=== PATIENT | female | born 1975 | race Caucasian/White ===

== ENCOUNTER 2016-10-26 18:14 | Emergency (ER) | payer OTHER ==
--- NOTE | 2016-10-26 19:27 | ED NURSING NOTES ---
Clinical Report - Nurses [facility] [place] [address] 10/26/2016 18:15 Patient: CT WITT TRIAGE Chief Complaint: SORE THROAT and (pt reports sorethroat that began yesterday,). Alert. No acute distress. SEPSIS SCREEN: Sepsis Screen: negative. Negative (no infection suspected/documented). --18:28 Quan Rodriguez R.N. 18:24 10/26/16. BP: 115/66. HR: 88. RR: 17. O2 saturation: 100%. Temp: 99 F. Pain level now: 12/06. --18:28 Quan Rodriguez R.N. Weight: 77.1 kg stated. Height/Length: 62 inches Per Patient. BMI: 31.1. --18:26 Quan Rodriguez R.N. Medications None. --18:26 Quan Rodriguez R.N. Allergies None. --18:26 Quan Rodriguez R.N. Medication/allergy information source: the patient. --18:28 Quan Rodriguez RLetha History This started yesterday. 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 PAST MEDICAL HX: No history of strep throat. Immunizations: up-to-date. Last normal menstrual period- September 29. SOCIAL HX: Smoker- current status unknown. No alcohol use or drug use. Infectious disease exposure. (daughter also has sore throat). ABUSE ASSESSMENT: No report of abuse. SELF HARM ASSESSMENT: A self harm assessment was performed. The patient answered "no" to the question "Do you have thoughts of harming or killing yourself?". FALL RISK ASSESSMENT: Fall risk assessment completed. No fall risk identified. NUTRITIONAL RISK ASSESSMENT: The nutritional risk assessment revealed no deficiencies. FUNCTIONAL ASSESSMENT: Functional assessment: no impairments noted. LEARNING NEEDS ASSESSMENT: The learning needs assessment revealed no barriers. SKIN INTEGRITY ASSESSMENT: Skin integrity risk assessment completed. No skin integrity risk identified. --18:28 PageDewayneKuchan, Karyol, R.N. PROBLEMS: Myofascial Strain. Irritable Bowel Syndrome. Back Pain. --18:27 Quan Rodriguez R.N. ADDITIONAL SURGERIES: Artery resection of right wrist. Other surgerys pt wont explain. --18:27 Quan Rodriguez R.N. Interventions ID band on patient. --18:28 Quan Rodriguez R.N. PHYSICAL ASSESSMENT Ambulatory to room. Patient gowned. GENERAL / NEURO / PSYCH: Alert. Oriented X 4. Appears in no acute distress. HEENT: Pupils equal, round and reactive to light. Voice within normal limits. Mucous membranes are pink. RESPIRATORY: Respirations not labored. CVS: Capillary refill less than 2 seconds. SKIN: Skin is warm and dry. Normal skin turgor. --18:28 Quan Rodriguez R.N. NURSING PROGRESS NOTES Patient identifiers checked. Call light placed in reach. Side rails up. Bed placed in lowest position. Brakes of bed on. Patient ready for evaluation- chart flagged. Patient waiting for evaluation. --18:29 Quan Rodriguez R.N. 18:49 10/26/16. Checked patient name and birthdate: patient confirmed. Throat swab obtained for rapid strep; labeled in the presence of the patient and sent to lab (collected by ). Reassessment after medication administered. --18:54 Quan Rodriguez R.N. Patient waiting for lab results. ( pt texting on phone, call light in reach, waiting lab results). --19:13 Quan Rodriguez R.N. DISPOSITION / DISCHARGE No learning barriers present. Discharge instructions provided and reviewed with the patient. Reviewed medication(s) side effects and course information. Prescription(s) given to the patient. Patient verbalized understanding. Written instructions provided in Emir[place]. The patient was discharged by the physician. She was discharged home and accompanied by family. She left the Emergency Department ambulatory and via private vehicle. Patient driving. --19:43 Quan Rodriguez R.N. 19:42 10/26/16. BP: 109/64. HR: 78. RR: 17. O2 saturation: 100%. Temp: 99.1 F. Pain level now: 11/06. --19:43 Quan Rodriguez R.N. Locked/Released at 10/26/2016 20:26 by Quan Rodriguez R.N.
--- NOTE | 2016-10-26 19:27 | ED CLINICAL REPORT ---
Clinical Report - Physicians/Mid Levels [facility] [address] [place] [address] 10/26/2016 18:15 Patient: CT WITT Time Seen: 18:20; initial patient contact. Arrived- By private vehicle. Historian- patient. HISTORY OF PRESENT ILLNESS Chief Complaint: SORE THROAT. This started about 1 week ago and is still present. It was gradual in onset. Pain described as mild. The patient has had a sore throat. No nasal discharge or congestion or ear pain. Similar symptoms previously: None. Recent medical care: Not recently seen/assessed. REVIEW OF SYSTEMS No fever, cough, nasal congestion, runny nose or sinus pain. All systems otherwise negative, except as recorded above. PAST HISTORY Myofascial Strain. Irritable Bowel Syndrome. Back Pain. ADDITIONAL SURGERIES: Artery resection of right wrist. Other surgerys pt wont explain. Medications: None. Allergies: None. SOCIAL HISTORY Smoker - current status unknown. No alcohol use or drug use. ADDITIONAL NOTES The nursing notes have been reviewed. PHYSICAL EXAM Vital Signs: 10/26/2016 18:24 BP: 115/66. HR: 88. RR: 17. O2 saturation: 100%. Temp: 99 F. Pain level now: 7/10. Have been reviewed as normal. Appearance: Alert. No acute distress. Head: Normal external inspection. No tenderness to palpation/percussion over the sinuses. ENT: Ears normal. Nose normal. Mild generalized pharyngeal erythema with right tonsillar swelling and exudate and left tonsillar swelling. No left tonsillar exudate. No muffled or hoarse voice. The mucous membranes are not dry. Neck: Trachea midline. No adenopathy. CVS: Normal heart rate and rhythm. Heart sounds normal. Respiratory: No respiratory distress. Chest nontender. Skin: Normal skin color. No rash. Neuro: Oriented X 3. LABS, X-RAYS, AND EKG Laboratory Tests: Culture, Strep Screen: (LOLA: 10/26/2016 18:45) ( MsgRcvd 10/26/2016 19:22) Final results Test Result Flag Units (Reference) RAPID STREP SCREEN - THROAT DATE: 10/26/16 NEGATIVE SCREEN: RAPID STREP SCREEN NEGATIVE; CONFIRMATION TO FOLLOW . PROGRESS AND PROCEDURES Disposition: Discharged home in good condition. Condition: good. CLINICAL IMPRESSION Acute pharyngitis. INSTRUCTIONS Drink plenty of fluids. Your Current Medications: CONTINUE TAKING THE FOLLOWING MEDICATIONS: None*. Prescription Medications: Amoxicillin 500 mg tablets: take 1 orally every 8 hours for 7 days Follow-up: Follow up with your doctor in about two days. Call for an appointment. Screening today revealed the patient's blood pressure to be in the normal range. (Electronically signed by Aftab De Souza Dr. 10/26/2016 21:23)
--- NOTE | 2016-10-26 19:27 | ED NURSING NOTES ---
Clinical Report - Nurses [facility] [place] [address] [place] [address] 10/26/2016 18:15 Patient: CT WITT TRIAGE Chief Complaint: SORE THROAT and (pt reports sorethroat that began yesterday,). Alert. No acute distress. SEPSIS SCREEN: Sepsis Screen: negative. Negative (no infection suspected/documented). --18:28 Quan Rodriguez R.N. 18:24 10/26/16. BP: 115/66. HR: 88. RR: 17. O2 saturation: 100%. Temp: 99 F. Pain level now: 12/06. --18:28 Quan Rodriguez R.N. Weight: 77.1 kg stated. Height/Length: 62 inches Per Patient. BMI: 31.1. --18:26 Quan Rodriguez R.N. Medications None. --18:26 Quan Rodriguez R.N. Allergies None. --18:26 Quan Rodriguez R.N. Medication/allergy information source: the patient. --18:28 Quan Rodriguez RLetha History This started yesterday. 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 PAST MEDICAL HX: No history of strep throat. Immunizations: up-to-date. Last normal menstrual period- September 29. SOCIAL HX: Smoker- current status unknown. No alcohol use or drug use. Infectious disease exposure. (daughter also has sore throat). ABUSE ASSESSMENT: No report of abuse. SELF HARM ASSESSMENT: A self harm assessment was performed. The patient answered "no" to the question "Do you have thoughts of harming or killing yourself?". FALL RISK ASSESSMENT: Fall risk assessment completed. No fall risk identified. NUTRITIONAL RISK ASSESSMENT: The nutritional risk assessment revealed no deficiencies. FUNCTIONAL ASSESSMENT: Functional assessment: no impairments noted. LEARNING NEEDS ASSESSMENT: The learning needs assessment revealed no barriers. SKIN INTEGRITY ASSESSMENT: Skin integrity risk assessment completed. No skin integrity risk identified. --18:28 PageDewayneKuchan, Karyol, R.N. PROBLEMS: Myofascial Strain. Irritable Bowel Syndrome. Back Pain. --18:27 Quan Rodriguez R.N. ADDITIONAL SURGERIES: Artery resection of right wrist. Other surgerys pt wont explain. --18:27 Quan Rodriguez R.N. Interventions ID band on patient. --18:28 Quan Rodriguez R.N. PHYSICAL ASSESSMENT Ambulatory to room. Patient gowned. GENERAL / NEURO / PSYCH: Alert. Oriented X 4. Appears in no acute distress. HEENT: Pupils equal, round and reactive to light. Voice within normal limits. Mucous membranes are pink. RESPIRATORY: Respirations not labored. CVS: Capillary refill less than 2 seconds. SKIN: Skin is warm and dry. Normal skin turgor. --18:28 Quan Rodriguez R.N. NURSING PROGRESS NOTES Patient identifiers checked. Call light placed in reach. Side rails up. Bed placed in lowest position. Brakes of bed on. Patient ready for evaluation- chart flagged. Patient waiting for evaluation. --18:29 Quan Rodriguez R.N. 18:49 10/26/16. Checked patient name and birthdate: patient confirmed. Throat swab obtained for rapid strep; labeled in the presence of the patient and sent to lab (collected by ). Reassessment after medication administered. --18:54 Quan Rodriguez R.N. Patient waiting for lab results. ( pt texting on phone, call light in reach, waiting lab results). --19:13 Quan Rodriguez R.N. DISPOSITION / DISCHARGE No learning barriers present. Discharge instructions provided and reviewed with the patient. Reviewed medication(s) side effects and course information. Prescription(s) given to the patient. Patient verbalized understanding. Written instructions provided in Rwandan. The patient was discharged by the physician. She was discharged home and accompanied by family. She left the Emergency Department ambulatory and via private vehicle. Patient driving. --19:43 Quan Rodriguez R.N. 19:42 10/26/16. BP: 109/64. HR: 78. RR: 17. O2 saturation: 100%. Temp: 99.1 F. Pain level now: 11/06. --19:43 Quan Rodriguez R.N. Locked/Released at 10/26/2016 20:26 by Quan Rodriguez R.N.
--- NOTE | 2016-10-26 19:27 | ED CLINICAL REPORT ---
Clinical Report - Physicians/Mid Levels [facility] [address] [place] [address] 10/26/2016 18:15 Patient: CT WITT Time Seen: 18:20; initial patient contact. Arrived- By private vehicle. Historian- patient. HISTORY OF PRESENT ILLNESS Chief Complaint: SORE THROAT. This started about 1 week ago and is still present. It was gradual in onset. Pain described as mild. The patient has had a sore throat. No nasal discharge or congestion or ear pain. Similar symptoms previously: None. Recent medical care: Not recently seen/assessed. REVIEW OF SYSTEMS No fever, cough, nasal congestion, runny nose or sinus pain. All systems otherwise negative, except as recorded above. PAST HISTORY Myofascial Strain. Irritable Bowel Syndrome. Back Pain. ADDITIONAL SURGERIES: Artery resection of right wrist. Other surgerys pt wont explain. Medications: None. Allergies: None. SOCIAL HISTORY Smoker - current status unknown. No alcohol use or drug use. ADDITIONAL NOTES The nursing notes have been reviewed. PHYSICAL EXAM Vital Signs: 10/26/2016 18:24 BP: 115/66. HR: 88. RR: 17. O2 saturation: 100%. Temp: 99 F. Pain level now: 7/10. Have been reviewed as normal. Appearance: Alert. No acute distress. Head: Normal external inspection. No tenderness to palpation/percussion over the sinuses. ENT: Ears normal. Nose normal. Mild generalized pharyngeal erythema with right tonsillar swelling and exudate and left tonsillar swelling. No left tonsillar exudate. No muffled or hoarse voice. The mucous membranes are not dry. Neck: Trachea midline. No adenopathy. CVS: Normal heart rate and rhythm. Heart sounds normal. Respiratory: No respiratory distress. Chest nontender. Skin: Normal skin color. No rash. Neuro: Oriented X 3. LABS, X-RAYS, AND EKG Laboratory Tests: Culture, Strep Screen: (LOLA: 10/26/2016 18:45) ( MsgRcvd 10/26/2016 19:22) Final results Test Result Flag Units (Reference) RAPID STREP SCREEN - THROAT DATE: 10/26/16 NEGATIVE SCREEN: RAPID STREP SCREEN NEGATIVE; CONFIRMATION TO FOLLOW . PROGRESS AND PROCEDURES Disposition: Discharged home in good condition. Condition: good. CLINICAL IMPRESSION Acute pharyngitis. INSTRUCTIONS Drink plenty of fluids. Your Current Medications: CONTINUE TAKING THE FOLLOWING MEDICATIONS: None*. Prescription Medications: Amoxicillin 500 mg tablets: take 1 orally every 8 hours for 7 days Follow-up: Follow up with your doctor in about two days. Call for an appointment. Screening today revealed the patient's blood pressure to be in the normal range. (Electronically signed by Aftab De Souza Dr. 10/26/2016 21:23)
--- NOTE | 2016-10-26 19:27 | ED ORDER SUMMARY ---
..... Patient: CT WITT OrderSheet [facility] VisitID: [id number] [address] [place] [address] 40y, F Registration Date/Time: 10/26/2016 ORDER SHEET Weight: 77.1 kg (stated) Allergies: None GENERAL ORDERS: Culture, Strep Screen Urgent (18:47 10/26/2016 Irma Terry) ([facility] 18:49 [facility] Tech1) (18:51 Vernon Irwin) MEDICATION ORDERS: IV FLUIDS: ORDER SHEET NOTES: [Electronically signed by Quan Rodriguez R.N. (20:26 10/26/2016)] [Electronically signed by Aftab De Souza Dr. (21:23 10/26/2016)] [Electronically locked/signed by Quan Rodriguez R.N. (20:10/26/2016)]
--- NOTE | 2016-10-26 19:27 | ED ORDER SUMMARY ---
..... Patient: CT WITT OrderSheet [facility] VisitID: [id number] [address] [place] [address] 40y, F Registration Date/Time: 10/26/2016 ORDER SHEET Weight: 77.1 kg (stated) Allergies: None GENERAL ORDERS: Culture, Strep Screen Urgent (18:47 10/26/2016 Irma Terry) ([facility] 18:49 [facility] Tech1) (18:51 Vernon Irwin) MEDICATION ORDERS: IV FLUIDS: ORDER SHEET NOTES: [Electronically signed by Quan Rodriguez R.N. (20:26 10/26/2016)] [Electronically signed by Aftab De Souza Dr. (21:23 10/26/2016)] [Electronically locked/signed by Quan Rodriguez R.N. (20:10/26/2016)]
--- NOTE | 2016-10-26 21:23 | ED MED RECONCILIATION SUMMARY ---
Patient: CT WITT Medication Reconciliation Report [facility] VisitID: [id number] [address] [place] [address] 40y, F Registration Date/Time: 10/26/2016 Weight: 77.1 kg Height/Length: 62 in. BMI: 31.1 ALLERGIES: None The patient's Home Medications are listed below: NONE. The source(s) of the original Home Medication information: patient The following Medications were given to the patient in the Emergency Department: None. The following Medications were prescribed to the patient: Amoxicillin 500 mg tablets: take 1 orally every 8 hours for 7 days -- Aftab De Souza Dr.
--- NOTE | 2016-10-26 21:23 | ED MED RECONCILIATION SUMMARY ---
Patient: CT WITT Medication Reconciliation Report [facility] VisitID: [id number] [address] [place] [address] 40y, F Registration Date/Time: 10/26/2016 Weight: 77.1 kg Height/Length: 62 in. BMI: 31.1 ALLERGIES: None The patient's Home Medications are listed below: NONE. The source(s) of the original Home Medication information: patient The following Medications were given to the patient in the Emergency Department: None. The following Medications were prescribed to the patient: Amoxicillin 500 mg tablets: take 1 orally every 8 hours for 7 days -- Aftab De Souza Dr.
--- NOTE | 2016-10-26 21:23 | ED DISCHARGE INSTRUCTIONS ---
Patient: CT WITT General Instructions [facility] VisitID: [id number] [place] [address] 40y, F Registration Date/Time: 10/26/2016 Acute pharyngitis. INSTRUCTIONS Drink plenty of fluids. Your Current Medications: CONTINUE TAKING THE FOLLOWING MEDICATIONS: None*. Prescription Medications: Amoxicillin 500 mg tablets: take 1 orally every 8 hours for 7 days Follow-up: Follow up with your doctor in about two days. Call for an appointment. Screening today revealed the patient's blood pressure to be in the normal range. ADDITIONAL INFORMATION Amoxicillin Trihydrate Oral tablet What is this medicine? AMOXICILLIN (a mox i LOUISA in) is a penicillin antibiotic. It is used to treat certain kinds of bacterial infections. It will not work for colds, flu, or other viral infections. How should I use this medicine? Take this medicine by mouth with a glass of water. Follow the directions on your prescription label. You may take this medicine with food or on an empty stomach. Take your medicine at regular intervals. Do not take your medicine more often than directed. Take all of your medicine as directed even if you think your are better. Do not skip doses or stop your medicine early. Talk to your hand flatwork finisher regarding the use of this medicine in children. While this drug may be prescribed for selected conditions, precautions do apply. What side effects may I notice from receiving this medicine? Side effects that you should report to your doctor or health emergency care attendant as soon as possible: allergic reactions like skin rash, itching or hives, swelling of the face, lips, or tongue breathing problems dark urine redness, blistering, peeling or loosening of the skin, including inside the mouth seizures severe or watery diarrhea trouble passing urine or change in the amount of urine unusual bleeding or bruising unusually weak or tired yellowing of the eyes or skin Side effects that usually do not require medical attention (report to your doctor or health emergency care attendant if they continue or are bothersome): dizziness headache stomach upset trouble sleeping What may interact with this medicine? amiloride control pills chloramphenicol macrolides probenecid sulfonamides tetracyclines What if I miss a dose? If you miss a dose, take it as soon as you can. If it is almost time for your next dose, take only that dose. Do not take double or extra doses. Where should I keep my medicine? Keep out of the reach of children. Store between 68 and 77 degrees F (20 and 25 degrees C). Keep bottle closed tightly. Throw away any unused medicine after the expiration date. What should I tell my health care provider before I take this medicine? They need to know if you have any of these conditions: asthma kidney disease an unusual or allergic reaction to amoxicillin, other penicillins, cephalosporin antibiotics, other medicines, foods, dyes, or preservatives or trying to get breast-feeding What should I watch for while using this medicine? Tell your doctor or health emergency care attendant if your symptoms do not improve in 2 or 3 days. Take all of the doses of your medicine as directed. Do not skip doses or stop your medicine early. If you are diabetic, you may get a false positive result for sugar in your urine with certain brands of urine tests. Check with your doctor. Do not treat diarrhea with [id number] products. Contact your doctor if you have diarrhea that lasts more than 2 days or if the diarrhea is severe and watery. You have been given the following additional information: Amoxicillin Trihydrate Oral tablet (Electronically signed by Aftab De Souza Dr. 10/26/2016 21:23)
--- NOTE | 2016-10-26 21:23 | ED DISCHARGE INSTRUCTIONS ---
Patient: CT WITT General Instructions [facility] VisitID: [id number] [place] [address] 40y, F Registration Date/Time: 10/26/2016 Acute pharyngitis. INSTRUCTIONS Drink plenty of fluids. Your Current Medications: CONTINUE TAKING THE FOLLOWING MEDICATIONS: None*. Prescription Medications: Amoxicillin 500 mg tablets: take 1 orally every 8 hours for 7 days Follow-up: Follow up with your doctor in about two days. Call for an appointment. Screening today revealed the patient's blood pressure to be in the normal range. ADDITIONAL INFORMATION Amoxicillin Trihydrate Oral tablet What is this medicine? AMOXICILLIN (a mox i LOUISA in) is a penicillin antibiotic. It is used to treat certain kinds of bacterial infections. It will not work for colds, flu, or other viral infections. How should I use this medicine? Take this medicine by mouth with a glass of water. Follow the directions on your prescription label. You may take this medicine with food or on an empty stomach. Take your medicine at regular intervals. Do not take your medicine more often than directed. Take all of your medicine as directed even if you think your are better. Do not skip doses or stop your medicine early. Talk to your lotus notes developer regarding the use of this medicine in children. While this drug may be prescribed for selected conditions, precautions do apply. What side effects may I notice from receiving this medicine? Side effects that you should report to your doctor or health resident care aid as soon as possible: allergic reactions like skin rash, itching or hives, swelling of the face, lips, or tongue breathing problems dark urine redness, blistering, peeling or loosening of the skin, including inside the mouth seizures severe or watery diarrhea trouble passing urine or change in the amount of urine unusual bleeding or bruising unusually weak or tired yellowing of the eyes or skin Side effects that usually do not require medical attention (report to your doctor or health resident care aid if they continue or are bothersome): dizziness headache stomach upset trouble sleeping What may interact with this medicine? amiloride control pills chloramphenicol macrolides probenecid sulfonamides tetracyclines What if I miss a dose? If you miss a dose, take it as soon as you can. If it is almost time for your next dose, take only that dose. Do not take double or extra doses. Where should I keep my medicine? Keep out of the reach of children. Store between 68 and 77 degrees F (20 and 25 degrees C). Keep bottle closed tightly. Throw away any unused medicine after the expiration date. What should I tell my health care provider before I take this medicine? They need to know if you have any of these conditions: asthma kidney disease an unusual or allergic reaction to amoxicillin, other penicillins, cephalosporin antibiotics, other medicines, foods, dyes, or preservatives or trying to get breast-feeding What should I watch for while using this medicine? Tell your doctor or health resident care aid if your symptoms do not improve in 2 or 3 days. Take all of the doses of your medicine as directed. Do not skip doses or stop your medicine early. If you are diabetic, you may get a false positive result for sugar in your urine with certain brands of urine tests. Check with your doctor. Do not treat diarrhea with [id number] products. Contact your doctor if you have diarrhea that lasts more than 2 days or if the diarrhea is severe and watery. You have been given the following additional information: Amoxicillin Trihydrate Oral tablet (Electronically signed by Aftab De Souza Dr. 10/26/2016 21:23)
--- NOTE | 2016-10-26 21:23 | ED MAR SUMMARY ---
..... Medication Administration Record [facility] [address] [place], [place] [id number] Patient: CT WITT Visit ID: [id number] 40y, F Weight: 77.1 kg Height/Length: 62 in BMI: 31.1 ALLERGIES: None
--- NOTE | 2016-10-26 21:23 | ED MAR SUMMARY ---
..... Medication Administration Record [facility] [address] [place] [id number] Patient: CT WITT Visit ID: [id number] 40y, F Weight: 77.1 kg Height/Length: 62 in BMI: 31.1 ALLERGIES: None
== END 2016-10-26 19:37 | disposition home or self-care (01) ==
LOC: ED SRH 18:14
DX: J02.9 Acute pharyngitis, unspecified (principal)
CPT/HCPCS: 90154; 90159; 90627

== ENCOUNTER 2016-11-10 10:19 | Outpatient (CLI) | payer OTHER ==
--- NOTE | 2016-11-10 10:53 | DIAGNOSTIC IMAGING REPORT ---
PROCEDURE: XR LUMBAR SPINE 2 OR 3 VIEWS INDICATION: BILATERAL LBP WITHOUT SCIATICA TECHNIQUE: Three views. COMPARISON: Lumbar spine films 11/24/2015 FINDINGS: Osseous structures and disc spaces are normal. No evidence of an acute process or fracture. IMPRESSION: 1. Negative lumbar spine.
== END 2016-11-10 23:00 ==
LOC: XR SRH 10:19
DX: M54.5 Low back pain (principal)

== ENCOUNTER 2016-11-19 09:03 | Outpatient (CLI) | payer OTHER ==
--- NOTE | 2016-11-19 11:28 | DIAGNOSTIC IMAGING REPORT ---
PROCEDURE: MR LUMBAR SPINE W/O CONTRAST INDICATION: BILATERAL LOW BACK PAIN TECHNIQUE: Noncontrast T1, T2, and STIR sagittal images. T1 and T2 axial images. COMPARISON: Lumbar spine x-ray 11/10/2016. FINDINGS: Normal alignment without fracture or suspicious osseous lesion. Mild spurring at L4. No desiccation of the lumbar discs. Normal conus. L1-2: Normal appearance. L2-3: Normal appearance. L3-4: Normal appearance. L4-5: Minor disc bulge with mild left foraminal stenosis. There is no spinal stenosis. L5-S1: Normal appearance. IMPRESSION: 1. Minor L4-5 disc bulge with mild left foraminal stenosis.
== END 2016-11-19 23:00 | disposition home or self-care (01) ==
LOC: MRI SRH 09:03
DX: M48.06 Spinal stenosis, lumbar region (principal)